=== PATIENT | female | born 1945 | race Two or more races ===

== ENCOUNTER 2017-06-13 05:32 | Inpatient (IN) | payer BC, MEDICARE ==
[~2017-06-13] VITALS: Ht 154.9 cm; Wt 56.4 kg
[2017-06-13 07:25] LABS: Basophils # (auto) 0.1 uL; Eosinophils # (auto) 0.1 uL; Eosinophils % (auto) 0.8 % (0.0-7.0); Hematocrit 38.4 % (36.0-46.0); Hemoglobin 12.9 g/dL (12.2-16.2); Lymphocytes # (auto) 1.7 uL; Lymphocytes % (auto) 24.2 % (10.0-50.0); Mean Corpuscular Hemoglobin 30.3 pg (28.0-32.0); Mean Corpuscular Hgb Conc. 33.5 g/dL (32.0-36.0); Mean Corpuscular Volume 90.6 fL (80.0-100.0); Monocytes # (auto) 0.6 uL; Monocytes % (auto) 8.2 % (0.0-12.0); Neutrophils # (auto) 4.5 uL; Neutrophils % (auto) 65.8 % (37.0-80.0); Nucleated Red Blood Cells % 0.3 %; Platelet Count (auto) 176 10^3/uL (140-450); Red Blood Cells 4.24 10^6/uL (4.0-5.20); Red Cell Distribution Width 14.8 % (11.8-14.3); White Blood Cell 6.8 10^3/uL (4.4-10.8)
[2017-06-13 07:38] LABS: Albumin 3.3 g/dL (3.4-5.0); BUN/Creatinine Ratio 19.5; Calcium 8.8 mg/dL (8.5-10.1); Magnesium 2.3 mg/dL (1.6-2.6)
[2017-06-13 07:44] LABS: Bilirubin, Total 1.2 mg/dL (0.2-1.0); Total Protein 6.4 g/dL (6.4-8.2)
[2017-06-13] MEDS ORDERED: FUROSEMIDE 40 MG/4 ML VIAL IV ONE (08:30)
[2017-06-13] MEDS ORDERED: LORazepam 2MG/ML-1ML VIAL IV ONE (09:00)
[2017-06-13] MEDS ORDERED: ACETAMINOPHEN 500 MG TAB PO PRN (09:15)
[2017-06-13] MEDS ORDERED: LACTULOSE 20Gm/30ML SOLN PO PRN (09:15)
[2017-06-13] MEDS ORDERED: TEMAZEPAM 15 MG CAP PO PRN (09:15)
[2017-06-13] MEDS ORDERED: PROMETHAZINE HCL 25 MG/ML 1ML IV PRN (09:15)
[2017-06-13] MEDS ORDERED: MORPHINE SULF INJ 2 MG/ML SYRINGE 1ML IV PRN (09:15)
[2017-06-13] MEDS ORDERED: LORazepam 0.5 MG TAB PO PRN (09:15)
[2017-06-13] MEDS ORDERED: NITROGLYCERIN 0.4 MG SL TAB SL PRN (09:15)
[2017-06-13] MEDS ORDERED: MORPHINE SULFATE 10 MG/ML INJ 1ML SDV IV PRN (09:15)
[2017-06-13] MEDS ORDERED: HYDROcodone-ACET 5/325MG TAB PO PRN (09:15)
[2017-06-13] MEDS: ENOXAPARIN SOD 40 MG/0.4 ML SYRINGE SC SCH (10:00)
[2017-06-13] MEDS: ENALAPRIL MALEATE 2.5 MG TAB PO SCH (10:00)
[2017-06-13] MEDS: FUROSEMIDE 40 MG/4 ML VIAL IV SCH (10:00)
[2017-06-13] MEDS ORDERED: NITROGLYCERIN 0.2MG/HR TOPICAL PATCH TD SCH (10:00)
[2017-06-13] MEDS: ASPirin 81 mg TAB PO SCH (10:00)
[2017-06-13] MEDS: POTASSIUM CHL 20 Meq TABLET PO SCH (10:00)
[2017-06-13] MEDS ORDERED: CARVEDILOL 3.125 MG TAB PO SCH (10:00)
[2017-06-13] MEDS: PANTOPRAZOLE 40 MG TAB PO SCH (10:00)
[2017-06-13] MEDS ORDERED: METO-158 PO (10:23)
[2017-06-13] MEDS ORDERED: METH500T6 PO (10:23)
[2017-06-13] MEDS ORDERED: [UNRECOGNIZED DRUG - CODE] PO (10:23)
[2017-06-13] MEDS ORDERED: CLOP75TA41 PO (10:34)
[2017-06-13] MEDS ORDERED: ASPI325T4 PO (10:34)
[2017-06-13] MEDS ORDERED: RAMI10CA38 PO (10:34)
[2017-06-13] MEDS ORDERED: IOHEXOL 350 MG/ML 100ML IJ ONE (11:18)
[2017-06-13 12:45] LABS: Urine WBC None Seen /hpf (0 - 5)
[2017-06-13 13:29] LABS: Urine Bacteria NONE SEEN /hpf (None Seen); Urine Blood Negative /uL (Negative); Urine Specific Gravity 1.011 (1.001-1.035)
[2017-06-13] MEDS ORDERED: SPIRONOLACTONE 25 MG TAB PO ONE (14:15)
[2017-06-13] MEDS: DOBUTamine 1000MCG/ML 250 ML IV SCH (14:48)
[2017-06-13] MEDS ORDERED: MORPHINE SULFATE 4 MG/ML SYR/VIAL IV PRN ×2 (17:15→20:15)
[2017-06-13] MEDS: SPIRONOLACTONE 25 MG TAB PO SCH (18:40)
[2017-06-13 20:33] VITALS: BP 124/67
[2017-06-13 22:00] VITALS: BP 124/67
[2017-06-13] MEDS: ATORVASTATIN 20 MG TAB PO SCH (23:00)
[2017-06-14 05:00] VITALS: BP 119/58
[2017-06-14] MEDS: SPIRONOLACTONE 25 MG TAB PO SCH ×2 (06:16→18:54)
[2017-06-14 07:46] LABS: Basophils # (auto) 0 uL; Basophils % (auto) 0.7 % (0.0-2.0); Eosinophils # (auto) 0.1 uL; Eosinophils % (auto) 2.2 % (0.0-7.0); Hematocrit 40.3 % (36.0-46.0); Hemoglobin 13.5 g/dL (12.2-16.2); Lymphocytes # (auto) 1.8 uL; Lymphocytes % (auto) 31.2 % (10.0-50.0); Mean Corpuscular Hgb Conc. 33.5 g/dL (32.0-36.0); Mean Corpuscular Volume 89.6 fL (80.0-100.0); Monocytes # (auto) 0.5 uL; Monocytes % (auto) 7.9 % (0.0-12.0); Neutrophils # (auto) 3.4 uL; Nucleated Red Blood Cells % 0.1 %; Platelet Count (auto) 171 10^3/uL (140-450); Red Cell Distribution Width 14.8 % (11.8-14.3); White Blood Cell 5.9 10^3/uL (4.4-10.8)
[2017-06-14 07:58] LABS: Albumin 3.2 g/dL (3.4-5.0); BUN/Creatinine Ratio 15.4; Bilirubin, Total 1.4 mg/dL (0.2-1.0); Calcium 8.3 mg/dL (8.5-10.1); Potassium 3.3 mmol/L (3.5-5.1); Total Protein 6.3 g/dL (6.4-8.2)
[2017-06-14] MEDS: DOBUTamine 1000MCG/ML 250 ML IV SCH (08:36)
[2017-06-14 09:00] VITALS: BP 123/67
[2017-06-14] MEDS: FUROSEMIDE 40 MG/4 ML VIAL IV SCH ×2 (10:00→10:58)
[2017-06-14] MEDS: ASPirin 81 mg TAB PO SCH (10:57)
[2017-06-14] MEDS: PANTOPRAZOLE 40 MG TAB PO SCH (10:58)
[2017-06-14] MEDS: POTASSIUM CHL 20 Meq TABLET PO SCH ×2 (10:58→22:00)
[2017-06-14] MEDS: ENOXAPARIN SOD 40 MG/0.4 ML SYRINGE SC SCH (10:58)
[2017-06-14] MEDS: DIGOXIN 0.25 MG TAB PO SCH (10:59)
[2017-06-14] MEDS: ENALAPRIL MALEATE 2.5 MG TAB PO SCH (11:01)
[2017-06-14] MEDS ORDERED: BUMETANIDE (0.25MG/ML) 4 ML VIAL IV ONE ×2 (11:15→12:00)
[2017-06-14] MEDS ORDERED: BUMETANIDE (0.25 MG/ML) INJ 10ML IV ONE (12:45)
[2017-06-14 13:00] VITALS: BP 124/65
[2017-06-14 17:00] VITALS: BP 115/68
[2017-06-14 22:00] VITALS: BP 107/68
[2017-06-14] MEDS: ATORVASTATIN 20 MG TAB PO SCH (22:00)
[2017-06-15] MEDS: DOBUTamine 1000MCG/ML 250 ML IV SCH ×2 (03:46→09:19)
[2017-06-15 05:00] VITALS: BP 118/67
[2017-06-15] MEDS: SPIRONOLACTONE 25 MG TAB PO SCH ×2 (06:07→17:09)
[2017-06-15 09:00] VITALS: BP 118/64
[2017-06-15] MEDS ORDERED: BUMETANIDE (0.25 MG/ML) INJ 10ML IV SCH (10:00)
[2017-06-15] MEDS: PANTOPRAZOLE 40 MG TAB PO SCH (11:45)
[2017-06-15] MEDS: POTASSIUM CHL 20 Meq TABLET PO SCH ×2 (11:45→22:05)
[2017-06-15] MEDS: DIGOXIN 0.25 MG TAB PO SCH (11:45)
[2017-06-15] MEDS: ASPirin 81 mg TAB PO SCH (11:46)
[2017-06-15] MEDS: BUMETANIDE (0.25 MG/ML) INJ 10ML IV SCH (11:46)
[2017-06-15] MEDS: ENALAPRIL MALEATE 2.5 MG TAB PO SCH (11:46)
[2017-06-15] MEDS: ENOXAPARIN SOD 40 MG/0.4 ML SYRINGE SC SCH (11:47)
[2017-06-15 13:00] VITALS: BP 120/70
[2017-06-15 17:00] VITALS: BP 110/63
[2017-06-15 20:00] VITALS: BP 118/64
[2017-06-15 21:57] VITALS: BP 122/68
[2017-06-15] MEDS: ATORVASTATIN 20 MG TAB PO SCH (22:05)
[2017-06-16] VITALS (7 sets, daily range): BP systolic 92–134; BP diastolic 48–72
[2017-06-16] MEDS: DOBUTamine 1000MCG/ML 250 ML IV SCH (02:30)
[2017-06-16] MEDS: SPIRONOLACTONE 25 MG TAB PO SCH ×2 (05:55→18:26)
[2017-06-16] MEDS: ENOXAPARIN SOD 40 MG/0.4 ML SYRINGE SC SCH (09:41)
[2017-06-16] MEDS: POTASSIUM CHL 20 Meq TABLET PO SCH ×2 (09:41→21:40)
[2017-06-16] MEDS: ASPirin 81 mg TAB PO SCH (09:41)
[2017-06-16] MEDS: BUMETANIDE (0.25 MG/ML) INJ 10ML IV SCH (09:41)
[2017-06-16] MEDS: ENALAPRIL MALEATE 2.5 MG TAB PO SCH (09:42)
[2017-06-16] MEDS: DIGOXIN 0.25 MG TAB PO SCH (09:42)
[2017-06-16] MEDS: PANTOPRAZOLE 40 MG TAB PO SCH (09:42)
[2017-06-16] MEDS: ATORVASTATIN 20 MG TAB PO SCH (21:40)
[2017-06-17] MEDS: DOBUTamine 1000MCG/ML 250 ML IV SCH (02:53)
[2017-06-17 05:00] VITALS: BP 124/67
[2017-06-17] MEDS: SPIRONOLACTONE 25 MG TAB PO SCH ×2 (05:43→18:13)
[2017-06-17 08:00] VITALS: BP 122/63
[2017-06-17] MEDS ORDERED: FUROSEMIDE 20 MG TAB PO SCH (11:00)
[2017-06-17] MEDS: FUROSEMIDE 40 MG TAB PO SCH (11:03)
[2017-06-17] MEDS: POTASSIUM CHL 20 Meq TABLET PO SCH ×2 (11:03→21:53)
[2017-06-17] MEDS: LISINOPRIL 10 MG TAB PO SCH (11:04)
[2017-06-17] MEDS: PANTOPRAZOLE 40 MG TAB PO SCH (11:04)
[2017-06-17] MEDS: ASPirin 81 mg TAB PO SCH (11:04)
[2017-06-17] MEDS: ENOXAPARIN SOD 40 MG/0.4 ML SYRINGE SC SCH (11:05)
[2017-06-17 12:00] VITALS: BP 109/59
[2017-06-17 17:00] VITALS: BP 104/54
[2017-06-17 21:51] VITALS: BP 103/59
[2017-06-17] MEDS: ATORVASTATIN 20 MG TAB PO SCH (21:53)
[2017-06-18 05:33] VITALS: BP 99/49
[2017-06-18] MEDS: SPIRONOLACTONE 25 MG TAB PO SCH ×2 (05:56→19:39)
[2017-06-18 08:54] VITALS: BP 125/83
[2017-06-18] MEDS: ASPirin 81 mg TAB PO SCH (10:39)
[2017-06-18] MEDS: POTASSIUM CHL 20 Meq TABLET PO SCH ×2 (10:39→21:44)
[2017-06-18] MEDS: DIGOXIN 0.125 MG TAB PO SCH (10:40)
[2017-06-18] MEDS: LISINOPRIL 10 MG TAB PO SCH (10:40)
[2017-06-18] MEDS: PANTOPRAZOLE 40 MG TAB PO SCH (10:41)
[2017-06-18] MEDS: FUROSEMIDE 40 MG TAB PO SCH (10:41)
[2017-06-18] MEDS: ENOXAPARIN SOD 40 MG/0.4 ML SYRINGE SC SCH (10:41)
[2017-06-18 13:00] VITALS: BP 127/60
[2017-06-18 13:16] LABS: Urine Bacteria FEW /hpf (None Seen); Urine Blood TRACE /uL (Negative); Urine Hyaline Cast FEW /lpf (0 - 2); Urine Specific Gravity 1.008 (1.001-1.035); Urine WBC 63 /hpf (0 - 5)
[2017-06-18 17:22] VITALS: BP 109/53
[2017-06-18] MEDS: ATORVASTATIN 20 MG TAB PO SCH (21:45)
[2017-06-18 22:00] VITALS: BP 114/61
[2017-06-19 05:00] VITALS: BP 111/58
[2017-06-19] MEDS: SPIRONOLACTONE 25 MG TAB PO SCH (05:55)
[2017-06-19 09:12] VITALS: BP 110/58
[2017-06-19] MEDS: FUROSEMIDE 40 MG TAB PO SCH (10:12)
[2017-06-19] MEDS: LISINOPRIL 10 MG TAB PO SCH (10:13)
[2017-06-19] MEDS: ASPirin 81 mg TAB PO SCH (10:14)
[2017-06-19] MEDS: DIGOXIN 0.125 MG TAB PO SCH (10:14)
[2017-06-19] MEDS: ENOXAPARIN SOD 40 MG/0.4 ML SYRINGE SC SCH (10:14)
[2017-06-19] MEDS: POTASSIUM CHL 20 Meq TABLET PO SCH (10:14)
[2017-06-19] MEDS: PANTOPRAZOLE 40 MG TAB PO SCH (10:14)
[2017-06-19 10:36] VITALS: BP 110/58
[2017-06-19 11:26] VITALS: BP 110/58
[2017-06-19 13:07] VITALS: BP 103/43
== END 2017-06-19 14:35 | disposition home or self-care (01) | DRG 291 ==
LOC: ER 05:32 → EDBD 05:32 → EDSEX 05:32 → TELE 05:33 → TELE-EAST 19:45
PROVIDERS: ADMIT Internal Medicine; ATTEND Family Medicine
DX: I11.0 Hypertensive heart disease with heart failure (principal); J96.00 Acute respiratory failure, unspecified whether with hypoxia or hypercapnia; I42.0 Dilated cardiomyopathy; I50.43 Acute on chronic combined systolic (congestive) and diastolic (congestive) heart failure; I34.0 Nonrheumatic mitral (valve) insufficiency; E87.6 Hypokalemia; E78.5 Hyperlipidemia, unspecified; R63.4 Abnormal weight loss; E78.00 Pure hypercholesterolemia, unspecified; I25.10 Atherosclerotic heart disease of native coronary artery without angina pectoris; Z95.1 Presence of aortocoronary bypass graft; Z95.5 Presence of coronary angioplasty implant and graft; I25.2 Old myocardial infarction; Z95.810 Presence of automatic (implantable) cardiac defibrillator; Z68.23 Body mass index [BMI] 23.0-23.9, adult
CPT/HCPCS: 36415; 36600; 71045; 71275; 80053; 80061; 80162; 81001; 82550; 82805; 83735; 83880; 84443; 84484; 85025; 85379; 85652; 86141; 87081; 93005; 93306; 96372; 96374; 96375; 97163

== ENCOUNTER 2018-09-06 10:28 | Emergency (ER) | payer MEDICARE ==
[~2018-09-06] VITALS: Ht 167.6 cm; Wt 62.6 kg
[~2018-09-06 10:28] MED LIST: ASPI325T4 PO; CLOP75TA41 PO; METH500T6 PO; METO-158 PO; RAMI10CA38 PO; [UNRECOGNIZED DRUG - CODE] PO
[2018-09-06 10:56] VITALS: BP 106/38
[2018-09-06] MEDS ORDERED: OXYMETAZOLINE HCL 0.05 % NASAL SPRAY 15ML ONE (12:00)
[2018-09-06 13:21] LABS: Basophils # (auto) 0 uL; Basophils % (auto) 0.7 % (0.0-2.0); Eosinophils # (auto) 0 uL; Eosinophils % (auto) 0.6 % (0.0-7.0); Hemoglobin 11.2 g/dL (12.2-16.2); Lymphocytes # (auto) 1.5 uL; Lymphocytes % (auto) 35.2 % (10.0-50.0); Mean Corpuscular Hemoglobin 31.8 pg (28.0-32.0); Mean Corpuscular Hgb Conc. 33.8 g/dL (32.0-36.0); Mean Corpuscular Volume 94.2 fL (80.0-100.0); Monocytes # (auto) 0.3 uL; Monocytes % (auto) 7.3 % (0.0-12.0); Neutrophils # (auto) 2.3 uL; Neutrophils % (auto) 56.2 % (37.0-80.0); Nucleated Red Blood Cells % 0.1 %; Platelet Count (auto) 129 10^3/uL (140-450); Red Blood Cells 3.51 10^6/uL (4.0-5.20); Red Cell Distribution Width 14.6 % (11.8-14.3); White Blood Cell 4.2 10^3/uL (4.4-10.8)
[2018-09-06 13:30] LABS: INR 0.98 (0.9-1.15); Partial Thromboplastin Time 26.6 sec (23.78-33.04); Prothrombin Time 10.5 sec (9.27-12.13)
[2018-09-06 13:40] LABS: Albumin 3.6 g/dL (3.4-5.0); Calcium 9.2 mg/dL (8.5-10.1)
[2018-09-06 13:45] LABS: BUN/Creatinine Ratio 11.3; Bilirubin, Total 0.9 mg/dL (0.2-1.0); Total Protein 6.7 g/dL (6.4-8.2)
== END 2018-09-06 14:08 | disposition home or self-care (01) ==
LOC: ER 10:28 → EDBD 10:28 → ER 14:08
DX: R04.0 Epistaxis (principal); I25.810 Atherosclerosis of coronary artery bypass graft(s) without angina pectoris; E78.5 Hyperlipidemia, unspecified; I10 Essential (primary) hypertension; Z95.1 Presence of aortocoronary bypass graft; Z88.8 Allergy status to other drugs, medicaments and biological substances; Z79.82 Long term (current) use of aspirin; Z79.01 Long term (current) use of anticoagulants; Z79.899 Other long term (current) drug therapy; Z90.49 Acquired absence of other specified parts of digestive tract; Z98.61 Coronary angioplasty status
CPT/HCPCS: 30901; 36415; 80053; 85025; 85610; 85730